=== PATIENT | female | born 1985 | race Native Hawaiian/Other Pacific Islander ===

== ENCOUNTER 2017-03-18 12:09 | Emergency (ER) | payer BC ==
[2017-03-18 12:14] VITALS: BP 113/76; PULSE 71; RESP 16; TEMP 98.7; O2SAT 100
--- NOTE | 2017-03-18 12:37 | ED PDOC ---
Syncope/Near Syncope/Dizziness Time Seen by Provider: 03/18/17 12:25 Chief Complaint (Nursing): Syncope Chief Complaint (Provider): syncope, head laceration History Per: Patient Additional Complaint(s): 32-year-old female with no past medical history presents to emergency department for evaluation of head injury status post syncopal episode. Patient was at the gym when she became dizzy, she fell and hit her head against the ground. Patient states prior to attending gym class she did not have breakfast this morning. She thinks that this is what caused the syncopal episode. Patient ate after the injury and feels much better upon arrival. She is not sure of last tetanus. She has mild headache, denies any dizziness, nausea, vomiting, vision changes. No other injury sustained. Past Medical History Reviewed: Historical Data, Nursing Documentation, Vital Signs Vital Signs: Last Vital Signs Temp 98.7 F 03/18/17 12:12 Pulse 71 03/18/17 12:12 Resp 16 03/18/17 12:12 BP 113/76 03/18/17 12:12 Pulse Ox 100 03/18/17 12:12 - Medical History PMH: No Chronic Diseases - Surgical History Surgical History: No Surg Hx - Family History Family History: States: No Known Family Hx - Living Arrangements Living Arrangements: With Friends/Others - Social History Current smoker - smoking cessation education provided: No Alcohol: None Drugs: Denies - Immunization History Hx Tetanus Toxoid Vaccination: No (not sure of last tetanus booster) - Allergies Allergies/Adverse Reactions: Allergies Allergy/AdvReac Type Severity Reaction Status Date / Time No Known Allergies Allergy Verified 03/18/17 12:12 Review of Systems ROS Statement: Except As Marked, All Systems Reviewed And Found Negative Cardiovascular: Negative for: Chest Pain Respiratory: Negative for: Cough Gastrointestinal: Negative for: Nausea, Vomiting Skin: Positive for: Other (scalp laceration) Neurological: Positive for: Other (syncope, head injury) Physical Exam - Reviewed Nursing Documentation Reviewed: Yes Vital Signs Reviewed: Yes - Physical Exam Appears: Positive for: Well, Non-toxic, No Acute Distress Head Exam: Negative for: ATRAUMATIC (1 cm laceration noted to right parietal scalp, slight active bleeding, mildly tender to palpation) Skin: Positive for: Normal Color. Negative for: Rash Eye Exam: Positive for: Normal appearance, EOMI, PERRL Neck: Positive for: Painless ROM. Negative for: Pain On Movement Of Neck Cardiovascular/Chest: Positive for: Regular Rate, Rhythm Respiratory: Positive for: Normal Breath Sounds Gastrointestinal/Abdominal: Positive for: Soft. 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 Negative for: Motor/Sensory Deficits, Aphasia, Facial Droop - Laboratory Results Result Diagrams: 03/18/17 12:55 03/18/17 12:55 Urine POC: Negative - ECG Interpretation Of ECG: NSR 61 bpm, no acute finding, reviewed by PA and ED attending. O2 Sat by Pulse Oximetry: 100 Pulse Ox Interpretation: Normal - Other Rad CT head X-Ray: Read By Radiologist X-Ray Interpretation: no acute finding Medical Decision Making Medical Decision Makin32 year old here with syncopal episode Plan: CT head Tetanus booster CBC Trop BMP Urine test Procedure note: Under sterile conditions laceration to scalp was cleansed with normal saline and Betadine, 5 mL of 2% lidocaine with epinephrine was used to anesthetize wound, good anesthesia was achieved. Wound was further irrigated with saline and Betadine. 2 marcus were used to approximate wound edges, good wound approximation was achieved, good bleeding control was achieved, procedure tolerated well by patient with no acute complications. Patient is aware of all diagnostic testing results, all questions answered. Patient was instructed to take Tylenol as needed for pain. Wound care instructions provided. Patient was instructed to return in 10 days for staple removal. Disposition - Clinical Impression Clinical Impression: Syncope, Scalp laceration, Requires a booster tetanus - Patient ED Disposition Is Patient to be Admitted: No Counseled Patient/Family Regarding: Studies Performed, Diagnosis, Need For Followup - Disposition Referrals: [facility] [Outside] Disposition: Routine/Home Disposition Time: 14:39 Condition: IMPROVED Additional Instructions: Keep wounds clean and dry. Tylenol for pain as needed. Wound check 2-3 days, staple removal 10 days. Return to ED at any time if acutely worse. Instructions: Syncope (ED), Laceration (ED), Staple Care (ED), Diphtheria/ Acellular Pertussis/Tetanus Booster Vaccine (Tdap) (Injection) Forms: [employer] ([employer]) Results - Lab Results Lab Results: 03/18/17 03/18/17 12:55 12:55 WBC 8.6 RBC 4.63 Hgb 13.4 Hct 41.4 MCV 89.5 MCH 29.0 MCHC 32.4 L RDW 13.3 Plt Count 161 MPV 9.0 Neut % (Auto) 78.8 H Lymph % (Auto) 15.2 L [place] % (Auto) 5.3 Eos % (Auto) 0.5 Baso % (Auto) 0.2 Neut # 6.8 Lymph # 1.3 [place] # 0.5 Eos # 0.0 Baso # 0.0 Sodium 136 Potassium 3.9 Chloride 103 Carbon Dioxide 25 Anion Gap 12 BUN 16 Creatinine 0.9 Est GFR ( Amer) > 60 Est GFR (Non-Af Amer) > 60 Random Glucose 103 Calcium 9.4 Troponin I < 0.0120
[2017-03-18 13:09] LABS: BASO % 0.2 % (0.0-2.0); EOS % 0.5 % (0.0-4.0); HEMATOCRIT 41.4 % (34.0-47.0); LYMPH # 1.3 K/uL (1.0-4.3); LYMPH % 15.2 % (20.0-40.0); MEAN CELL VOLUME 89.5 fl (81.0-99.0); MEAN CORPUSCULAR HGB CONC 32.4 g/dL (33.0-37.0); MONO # 0.5 K/uL (0.0-0.8); MONO % 5.3 % (0.0-10.0); NEUT # 6.8 K/uL (1.8-7.0); NEUT % 78.8 % (50.0-75.0); RED CELL DISTRIBUTION WIDTH 13.3 % (11.5-14.5); WHITE BLOOD COUNT 8.6 K/uL (4.8-10.8)
[2017-03-18] MEDS ORDERED: Lidocaine 1% w Epi 1:100,000 Inj INJ STA (13:12)
[2017-03-18 13:18] LABS: BLOOD UREA NITROGEN 16 mg/dl (7-17); CALCIUM 9.4 mg/dL (8.4-10.2); CARBON DIOXIDE 25 mmol/L (22-30); CHLORIDE 103 mmol/L (98-107); GFR AFRICAN-AMERICAN > 60; GLUCOSE,RANDOM 103 mg/dL (65-105); POTASSIUM 3.9 MMOL/L (3.6-5.0); SODIUM 136 mmol/l (132-148)
[2017-03-18] MEDS ORDERED: Lidocaine 2% w Epi 1:100,000 Inj IJ ONE (13:18)
--- NOTE | 2017-03-18 14:07 | CT ---
PROCEDURE: CT HEAD WITHOUT CONTRAST. HISTORY: trauma COMPARISON: None available. TECHNIQUE: Axial computed tomography images were obtained through the head/brain without intravenous contrast. Radiation dose: Total exam DLP = 1198.88 mGy-cm. This CT exam was performed using one or more of the following dose reduction techniques: Automated exposure control, adjustment of the mA and/or kV according to patient size, and/or use of iterative reconstruction technique. FINDINGS: HEMORRHAGE: No intracranial hemorrhage. BRAIN: No mass effect or edema. No atrophy or chronic microvascular ischemic changes. VENTRICLES: Unremarkable. No hydrocephalus. CALVARIUM: Unremarkable. PARANASAL SINUSES: Unremarkable as visualized. No significant inflammatory changes. MASTOID AIR CELLS: Unremarkable as visualized. No inflammatory changes. OTHER FINDINGS: None. IMPRESSION: No evidence of acute intracranial hemorrhage intracranial collection mass effect or midline shift
--- NOTE | 2017-03-19 11:38 | CARD ---
APPROVED REPORT EKG Measurement Heart [id number] 126P2 [id number] <Conclusion> Normal sinus rhythm Normal ECG
== END 2017-03-18 14:52 | disposition home or self-care (01) ==
LOC: H.ER 12:09
DX: S01.01XA Laceration without foreign body of scalp, initial encounter (principal); Z23 Encounter for immunization; R42 Dizziness and giddiness; W19.XXXA Unspecified fall, initial encounter; Y92.219 Unspecified school as the place of occurrence of the external cause; Y99.9 Unspecified external cause status